=== PATIENT | female | born 1995 | race Caucasian/White ===

== ENCOUNTER 2019-01-27 08:04 | Emergency (ER) | payer OTHER ==
[~2019-01-27] VITALS: Ht 170.2 cm; Wt 59.0 kg
[2019-01-27 08:10] VITALS: BP 120/73
[2019-01-27] MEDS ORDERED: DEXAMETHASONE 4 MG TABLET PO STA (08:56)
--- NOTE | 2019-01-27 09:05 | PHYS DOC ---
Past Medical History Past Medical History: Arthritis, Depression Additional Past Medical Histor: "arthritis in my hands" Past Surgical History: Other Additional Past Surgical Histo: "I had surgery when I was little because my flaps woldn't close when I peed Additional Information: non smoker Alcohol Use: Rarely Drug Use: Marijuana Adult General Chief Complaint Chief Complaint: SKIN PROBLEM HPI HPI The patient is a 23 y/o female who presents to ER after having a rash for a week and a half that started after she was using a new shampoo. Rash has continued to get worse and is painful. Severity of 10 out of 10 and tender to touch. Rash is located on bilateral arms, chest, back, and R posterior leg. Has tried switching to a new soap several days ago but it hasn't improved. Review of Systems Review of Systems Constitutional: Denies fever or chills [] Eyes: Denies change in visual acuity, redness, or eye pain [] HENT: Denies nasal congestion or sore throat [] Respiratory: Denies cough or shortness of breath [] Cardiovascular: No additional information not addressed in HPI [] GI: Denies abdominal pain, nausea, vomiting, bloody stools or diarrhea [] : Denies dysuria or hematuria [] Musculoskeletal: Denies back pain or joint pain [] Integument: Reports rash and blistering. Neurologic: Denies headache, focal weakness or sensory changes [] Endocrine: Denies polyuria or polydipsia [] Complete systems were reviewed and found to be within normal limits, except as documented in this note. Current Medications Current Medications Current Medications Medications (Trade) Dose Ordered Sig/[facility] Start Time Stop Time Status Last Admin Dose Admin Dexamethasone (Decadron) 10 mg 1X STAT 01/27/19 08:56 01/27/19 08:57 DC 01/27/19 09:12 10 MG Allergies Allergies Allergies Coded Allergies Type Severity Reaction Last Updated Verified No Known Drug Allergies 12/16/13 No Physical Exam Physical Exam Constitutional: Well developed, well nourished, no acute distress, non-toxic appearance. [] HENT: Normocephalic, atraumatic, bilateral external ears normal, oropharynx moist, no oral exudates, nose normal. [] Eyes: PERRLA, EOMI, conjunctiva normal, no discharge. [] Neck: Normal range of motion, no tenderness, supple, no stridor. [] Cardiovascular:Heart rate regular rhythm, no murmur [] Lungs & Thorax: Bilateral breath sounds clear to auscultation [] Abdomen: Bowel sounds normal, soft, no tenderness, no masses, no pulsatile masses. [] Skin: Warm, dry, no erythema, has errythema to arms, chest, R posterior leg and back with intermittent blistering. [] Back: No tenderness, no CVA tenderness. [] Extremities: No tenderness, no cyanosis, no clubbing, ROM intact, no edema. [] Neurologic: Alert and oriented X 3, normal motor function, normal sensory function, no focal deficits noted. [] Psychologic: Affect normal, judgement normal, mood normal. [] Current Patient Data Vital Signs Vital Signs Date Time Temp Pulse Resp B/P (MAP) Pulse Ox O2 Delivery O2 Flow Rate FiO2 01/27/19 08:10 97.9 80 20 120/73 (89) 99 Room Air 97.9 EKG EKG [] Radiology/Procedures Radiology/Procedures [] Course & Med Decision Making Course & Med Decision Making Pertinent Labs and Imaging studies reviewed. (See chart for details) Talked to patient about going back to her old shampoo that was not causing issues. Will order steroid in ER to help. Also recommend Neosporin and hydrocortisone cream (Patient is allergic to aloe) and to follow up with Derm. Patient is agreeable to plan of care. Can also take Ibuprofen per label i nstructions. Dragon Disclaimer Dragon Disclaimer This electronic medical record was generated, in whole or in part, using a voice recognition dictation system. Departure Departure Impression: Primary Impression: Rash and nonspecific skin eruption Disposition: 01 HOME, SELF-CARE Condition: STABLE Referrals: NO PCP (PCP) Patient Instructions: Rash, [id number] Additional Instructions: Please follow up with Derm if it continues to worsen or does not improve. The number for [facility] is . Some things you can try to help is Neosporin ointment, and anti-inflammatory medications such as ibuprofen according to the label. Stop using the irritants that have possibly caused the irritation and go back to your old soap. BETSY CARPENTER APRN January 27, 2019 09:05
== END 2019-01-27 09:20 | disposition home or self-care (01) ==
LOC: ER 08:04
DX: S80.821A Blister (nonthermal), right lower leg, initial encounter (principal); S20.421A Blister (nonthermal) of right back wall of thorax, initial encounter; L53.8 Other specified erythematous conditions; R21 Rash and other nonspecific skin eruption; M19.90 Unspecified osteoarthritis, unspecified site; F32.9 Major depressive disorder, single episode, unspecified; X58.XXXA Exposure to other specified factors, initial encounter; Y93.89 Activity, other specified; Y92.89 Other specified places as the place of occurrence of the external cause; Y99.8 Other external cause status
CPT/HCPCS: 99282; J8540; 99281

== ENCOUNTER 2019-05-23 04:01 | Emergency (ER) | payer MEDICAID, OTHER ==
[~2019-05-23] VITALS: Ht 170.2 cm; Wt 59.0 kg
[2019-05-23 04:02] VITALS: BP 146/83
--- NOTE | 2019-05-23 04:37 | PHYS DOC ---
Past Medical History Past Medical History: Arthritis, Depression Additional Past Medical Histor: "arthritis in my hands", OCD, TAMMY, ORTHOREXIA, DEPRESSION (NOREEN BOONE MD) Past Surgical History: Other Additional Past Surgical Histo: "I had surgery when I was little because my flaps woldn't close when I peed (NOREEN BOONE MD) Alcohol Use: Rarely Drug Use: Marijuana (NOREEN BOONE MD) Adult General Chief Complaint Chief Complaint: ABDOMINAL PAIN HPI HPI Patient is a 23 year old f p/w lower abdo craamping since 2 am fairly sudden onset. with vag bleeding due for period lmp was last month (NOREEN BOONE MD) Review of Systems Review of Systems Constitutional: Denies fever or chills [] Eyes: Denies change in visual acuity, redness, or eye pain [] HENT: Denies nasal congestion or sore throat [] Respiratory: Denies cough or shortness of breath [] Cardiovascular: No additional information not addressed in HPI [] Neurologic: Denies headache, focal weakness or sensory changes [] Endocrine: Denies polyuria or polydipsia [] All other systems were reviewed and found to be within normal limits, except as documented in this note. (NOREEN BOONE MD) Current Medications Current Medications Current Medications Medications (Trade) Dose Ordered Sig/[facility] Start Time Stop Time Status Last Admin Dose Admin Diazepam (Valium) 5 mg 1X ONCE 05/23/19 04:45 05/23/19 04:46 DC 05/23/19 04:50 5 MG Fentanyl Citrate (Fentanyl 2ml Vial) 50 mcg 1X ONCE 05/23/19 04:45 05/23/19 04:46 DC 05/23/19 05:11 50 MCG Ketorolac Tromethamine (Toradol 15mg Vial) 15 mg 1X ONCE 05/23/19 04:45 05/23/19 04:46 DC 05/23/19 05:11 15 MG Sodium Chloride 1,000 ml @ 1,000 mls/hr 1X ONCE 05/23/19 04:45 05/23/19 05:44 DC 05/23/19 05:26 1,000 MLS/HR (DRAKE POLANCO MD) Allergies Allergies Allergies Coded Allergies Type Severity Reaction Last Updated Verified No Known Drug Allergies 12/16/13 No (DRAKE POLANCO MD) Physical Exam Physical Exam Constitutional: Well developed, well nourished, mild disterss HENT: Normocephalic, atraumatic, bilateral external ears normal, oropharynx m oist, no oral exudates, nose normal. [] Eyes: PERRLA, EOMI, conjunctiva normal, no discharge. [] Neck: Normal range of motion, no tenderness, supple, no stridor. [] Cardiovascular:Heart rate regular rhythm, no murmur [] Lungs & Thorax: Bilateral breath sounds clear to auscultation [] Abdomen: Bowel sounds normal, soft, suprapubic tenderness, no masses, no pulsatile masses. [] Skin: Warm, dry, no erythema, no rash. [] Back: No tenderness, no CVA tenderness. [] Extremities: No tenderness, no cyanosis, no clubbing, ROM intact, no edema. [] Neurologic: Alert and oriented X 3, normal motor function, normal sensory function, no focal deficits noted. [] Psychologic: Affect normal, judgement normal, mood normal. [] (NOREEN BOONE MD) Current Patient Data Vital Signs Vital Signs Date Time Temp Pulse Resp B/P (MAP) Pulse Ox O2 Delivery O2 Flow Rate FiO2 05/23/19 05:11 24 100 05/23/19 04:02 98.2 74 146/83 (104) Room Air 98.2 (DRAKE POLANCO MD) Lab Values Laboratory Tests Test 05/23/19 04:24 05/23/19 05:10 POC Urine HCG, Qualitative Hcg negative (Negative) White Blood Count 6.8 x10^3/uL (4.0-11.0) Red Blood Count 4.22 x10^6/uL (3.50-5.40) Hemoglobin 13.6 g/dL (12.0-15.5) Hematocrit 39.5 % (36.0-47.0) Mean Corpuscular Volume 94 fL (79-100) Mean Corpuscular Hemoglobin 32 pg (25-35) Mean Corpuscular Hemoglobin Concent 34 g/dL (31-37) Red Cell Distribution Width 13.2 % (11.5-14.5) Platelet Count 261 x10^3/uL (140-400) Neutrophils (%) (Auto) 59 % (31-73) Lymphocytes (%) (Auto) 32 % (24-48) Monocytes (%) (Auto) 8 % (0-9) Eosinophils (%) (Auto) 2 % (0-3) Basophils (%) (Auto) 0 % (0-3) Neutrophils # (Auto) 4.0 x10^3/uL (1.8-7.7) Lymphocytes # (Auto) 2.2 x10^3/uL (1.0-4.8) Monocytes # (Auto) 0.5 x10^3/uL (0.0-1.1) Eosinophils # (Auto) 0.1 x10^3/uL (0.0-0.7) Basophils # (Auto) 0.0 x10^3/uL (0.0-0.2) Urine Collection Type Unknown Urine Color Yellow Urine Clarity Clear Urine pH 8.5 Urine Specific [place] 1.020 Urine Protein Negative mg/dL (NEG-TRACE) Urine Glucose (UA) Negative mg/dL (NEG) Urine Ketones (Stick) Negative mg/dL (NEG) Urine Blood Large (NEG) Urine Nitrite Negative (NEG) Urine Bilirubin Negative (NEG) Urine Urobilinogen Dipstick 0.2 mg/dL (0.2 mg/dL) Urine Leukocyte Esterase Negative (NEG) Urine RBC >40 /HPF (0-2) Urine WBC 0 /HPF (0-4) Urine Squamous Epithelial Cells Few /LPF Urine Bacteria 0 /HPF (0-FEW) Sodium Level 142 mmol/L (136-145) Potassium Level 3.6 mmol/L (3.5-5.1) Chloride Level 105 mmol/L (98-107) Carbon Dioxide Level 24 mmol/L (21-32) Anion Gap 13 (6-14) Blood Urea Nitrogen 8 mg/dL (7-20) Creatinine 0.7 mg/dL (0.6-1.0) Estimated GFR (Cockcroft-Gault) 103.7 BUN/Creatinine Ratio 11 (6-20) Glucose Level 90 mg/dL (70-99) Calcium Level 9.0 mg/dL (8.5-10.1) Total Bilirubin 0.2 mg/dL (0.2-1.0) Aspartate Amino Transferase (AST) 17 U/L (15-37) Alanine Aminotransferase (ALT) 8 U/L (14-59) L Alkaline Phosphatase 105 U/L (46-116) Total Protein 7.3 g/dL (6.4-8.2) Albumin 3.9 g/dL (3.4-5.0) Albumin/Globulin Ratio 1.1 (1.0-1.7) Laboratory Tests 05/23/19 05:10 Laboratory Tests 05/23/19 05:10 (DRAKE POLANCO MD) EKG EKG [] (NOREEN BOONE MD) Radiology/Procedures Radiology/Procedures [] (NOREEN BOONE MD) Radiology/Procedures [facility] [address] [place] [address] IMAGING REPORT Signed PATIENT: LUCILLE BUTLER ACCOUNT: [id number] : 1995 LOCATION: ER AGE: 23 SEX: F EXAM STATUS: REG ER ORD. PHYSICIAN: NOREEN BOONE MD REASON: rule out torsion. sudden onset pelvic pain PROCEDURE: PELVIS W/TV Pelvic ultrasound, transabdominal and transvaginal: Reason for examination: Sudden onset of pelvic pain. Evaluate for torsion. Transabdominal transvaginal ultrasound examination of the pelvis was performed. Transabdominally, there is poor visualization of the uterus or ovaries due to bowel gas. Transvaginally, the uterus measures 8.1 x 4.0 x 3.1 cm in greatest dimension. The endometrium is not abnormally thickened at 8.5 mm. Nabothian cysts are seen in the cervix. The right ovary measures 3.0 x 1.6 x 1.5 cm in greatest dimension and shows good vascular flow with a few small follicles. The left ovary measures 2.5 x 1.2 x 1.0 cm in greatest dimension and shows normal vasculature with no focal abnormalities. There is a trace of free fluid in the pelvis. IMPRESSION: Nabothian cysts in the cervix. A few small follicles in the right ovary. Trace of free fluid in the pelvis which can be physiologic. No other significant abnormality seen in the pelvis. Electronically signed by: Malou Cannon MD (05/23/2019 6:32 AM) [facility] DICTATED and SIGNED BY: MALOU CANNON MD DATE: 05/23/19 0632 (DRAKE POLANCO MD) Course & Med Decision Making Course & Med Decision Making Pertinent Labs and Imaging studies reviewed. (See chart for details) 23 yo f wtih low abdo cramping (NOREEN BOONE MD) Dragon Disclaimer Dragon Disclaimer This electronic medical record was generated, in whole or in part, using a voice recognition dictation system. (NOREEN BOONE MD) Departure Departure Impression: Primary Impression: Dysmenorrhea Disposition: HOME, SELF-CARE (at 0 710) Condition: IMPROVED Referrals: NO PCP (PCP) Patient Instructions: Dysmenorrhea Additional Instructions: Drink plenty of liquids Follow-up with your primary care physician in 3-5 days Return to ER if not getting better Scripts Naproxen (NAPROSYN) 500 Mg Tablet 1 TAB PO BID for pain, #20 TAB Prov: DRAKE POLANCO MD 05/23/19 NOREEN BOONE MD May 23, 2019 04:37 DRAKE POLANCO MD May 23, 2019 07:11
[2019-05-23] MEDS ORDERED: KETOROLAC 15 MG/ML VIAL. IV ONE (04:45)
[2019-05-23] MEDS ORDERED: diazePAM 5 MG TABLET PO ONE (04:45)
[2019-05-23] MEDS ORDERED: fentaNYL PF VIAL 100 MCG/2 ML VIAL IV ONE (04:45)
[2019-05-23] MEDS ORDERED: IV NORMAL SALINE 1000ML BAG 1,000 ML IV ONE (04:45)
[2019-05-23 05:47] LABS: CREATININE 0.7 mg/dL (0.6-1.0); GFR 103.7; POTASSIUM 3.6 mmol/L (3.5-5.1)
[2019-05-23 05:55] LABS: ALBUMIN 3.9 g/dL (3.4-5.0); ALBUMIN/GLOBULIN RATIO 1.1 (1.0-1.7); TOTAL BILIRUBIN 0.2 mg/dL (0.2-1.0); TOTAL PROTEIN 7.3 g/dL (6.4-8.2)
[2019-05-23 05:57] LABS: BILIRUBIN,URINE NEGATIVE (NEG); CLARITY,URINE CLEAR; COLOR,URINE YELLOW; NITRITE,URINE NEGATIVE (NEG); PH,URINE 8.5; PROTEIN,URINE NEGATIVE (NEG-TRACE); UROBILINOGEN,URINE 0.2 mg/dL (0.2 mg/dL)
[2019-05-23 06:14] LABS: BACTERIA,URINE 0 /HPF (0-FEW); RBC,URINE >40 /HPF (0-2); SQUAMOUS EPITHELIAL CELL,UR FEW /LPF; WBC,URINE 0 /HPF (0-4)
[2019-05-23 06:29] LABS: BASO % 0 % (0-3); EOS # 0.1 x10^3/uL (0.0-0.7); EOS % 2 % (0-3); HEMATOCRIT 39.5 % (36.0-47.0); HEMOGLOBIN 13.6 g/dL (12.0-15.5); LYMPH # 2.2 x10^3/uL (1.0-4.8); LYMPH % 32 % (24-48); MEAN CORPUSCULAR HEMOGLOBIN 32 pg (25-35); MEAN CORPUSCULAR HGB CONC 34 g/dL (31-37); MEAN CORPUSCULAR VOLUME 94 fL (79-100); MONO # 0.5 x10^3/uL (0.0-1.1); MONO % 8 % (0-9); NEUT % 59 % (31-73); PLATELET COUNT 261 x10^3/uL (140-400); RED BLOOD COUNT 4.22 x10^6/uL (3.50-5.40); RED CELL DISTRIBUTION WIDTH 13.2 % (11.5-14.5); WHITE BLOOD COUNT 6.8 x10^3/uL (4.0-11.0)
--- NOTE | 2019-05-23 06:35 | RAD ---
Pelvic ultrasound, transabdominal and transvaginal: Reason for examination: Sudden onset of pelvic pain. Evaluate for torsion. Transabdominal transvaginal ultrasound examination of the pelvis was performed. Transabdominally, there is poor visualization of the uterus or ovaries due to bowel gas. Transvaginally, the uterus measures 8.1 x 4.0 x 3.1 cm in greatest dimension. The endometrium is not abnormally thickened at 8.5 mm. Nabothian cysts are seen in the cervix. The right ovary measures 3.0 x 1.6 x 1.5 cm in greatest dimension and shows good vascular flow with a few small follicles. The left ovary measures 2.5 x 1.2 x 1.0 cm in greatest dimension and shows normal vasculature with no focal abnormalities. There is a trace of free fluid in the pelvis. IMPRESSION: Nabothian cysts in the cervix. A few small follicles in the right ovary. Trace of free fluid in the pelvis which can be physiologic. No other significant abnormality seen in the pelvis. Electronically signed by: Avani Pierre MD (05/23/2019 6:32 AM) [facility]
[2019-05-23] MEDS ORDERED: NAPR-683 PO (07:11)
[2019-05-23] MEDS ORDERED: HYDROcodone/APAP 5/325MG 1 TAB TABLET PO ONE (07:15)
== END 2019-05-23 07:30 | disposition home or self-care (01) ==
LOC: ER 04:01
DX: N94.6 Dysmenorrhea, unspecified (principal); N93.9 Abnormal uterine and vaginal bleeding, unspecified
CPT/HCPCS: 36415; 76830; 76856; 80053; 81001; 81025; 85025; 96361; 96374; 96375; 99285; J1885; J3010; J7030